=== PATIENT | female | born 1980 | race African-American/Black ===

== ENCOUNTER 2018-11-06 19:46 | Emergency (ER) | payer SELFPAY ==
[~2018-11-06] VITALS: Ht 167.6 cm; Wt 84.4 kg
--- NOTE | 2018-11-06 20:10 | NUR ---
ASSISTED PT TO RESTROOM TO PROVIDE URINE SAMPLE AND CHANGE INTO A GOWN, CLOSED DOOR UPON EXITING THE RESTROOM IN ROOM 9. PT CALLED OUT SHE NEEDED ASSISTANCE SORTLY AFTER THIS NURSE HEARD OVERHEARD FLUIDS SPILL TO THE FLOOR. UPON ENTERING THE RESTROOM THE PT WAS NOTED TO BE STANDING WITH FEET SPREAD APART, UMBILICAL CORD PRESENTING OUTSIDE OF THE BODY, NOTED PLACENTA AND FETUS TO BE CRADLED IN PT'S UNDERWEAR, NO MOVEMENT NOTED. ASSISTED PT BACK TO THE EXAM BED AND ALERTED DR. PIKE OF FINDINGS
[2018-11-06] MEDS ORDERED: OXYTOCIN/NORMAL SALINE 500 ML IV ONE (20:11)
[2018-11-06 20:32] LABS: BASOPHILS % (AUTO) 0 % (0-10); EOSINOPHILS # (AUTO) 0.1 10^3/uL (0.0-0.3); EOSINOPHILS % (AUTO) 1 % (0-10); HEMATOCRIT 32 % (35-52); LYMPHOCYTES # (AUTO) 2.3 X 10^3 (1.0-4.0); LYMPHOCYTES % (AUTO) 15 % (12-44); MEAN CORPUSCULAR HEMOGLOBIN 33 PG (25-34); MEAN CORPUSCULAR HGB CONC 35 G/DL (32-36); MEAN CORPUSCULAR VOLUME 94 FL (80-99); MEAN PLATELET VOLUME 9.7 FL (7.4-10.4); MONOCYTES # (AUTO) 0.9 X 10^3 (0.0-1.0); MONOCYTES % (AUTO) 6 % (0-12); NEUTROPHILS # (AUTO) 11.9 X 10^3 (1.8-7.8); NEUTROPHILS % (AUTO) 78 % (42-75); PLATELET COUNT 351 10^3/uL (130-400); WHITE BLOOD COUNT 15.2 10^3/uL (4.3-11.0)
--- NOTE | 2018-11-06 20:32 | ED GU-Female ---
General Stated Complaint: CRAMPING, BLEEDING, POSSIBLE MISCARRIAGE Source: patient, other Exam Limitations: no limitations History of Present Illness Date Seen by Provider: Nov 06, 2018 Time Seen by Provider: 19:56 Initial Comments The patient is a unknown dates she thinks her last period was about 3 months ago was in the ER with what she thinks the fetus in her underwear. She said she was not aware she was prior to having some cramping pain and bleeding. She denies any dysuria fevers chills cough. She does have a history of high blood pressure but she does not follow with any doctors and was told to take medicines but never took them because she just didn't feel she needed them. She says at times she'll check her blood pressure and it will be 240 on the systolic. She does not have any other known medical history. She denies a history of preeclampsia or hypertension with in the past. She's says the cramping pain is intermittent and she is not in any discomfort right now. No nausea vomiting or diarrhea. She denies any right upper quadrant abdominal pain, visual disturbances, history of seizures. In the past the patient followed with an OB provider in [place] or she cannot remember the name. Allergies and Home Medications Allergies Coded Allergies: No Known Drug Allergies (Unverified , 11/06/18) Patient Home Medication List Home Medication List Reviewed: Yes Review of Systems Review of Systems Constitutional: No chills, No diaphoresis EENTM: No ear discharge, No ear pain Respiratory: No cough, No short of breath Cardiovascular: No chest pain, No edema Gastrointestinal: abdominal pain; No constipation, No diarrhea, No nausea, No vomiting Genitourinary: denies discharge, denies dysuria; hematuria Past Ryhhwai-Dadzsx-Cymkgd Hx Patient Social History Alcohol Use: Denies Use Recreational Drug Use: Yes Drug of Choice: MJ, Meth Smoking Status: Current Everyday Smoker 2nd Hand Smoke Exposure: No Recent Foreign Travel: No Contact w/Someone Who Travel: No Physical Exam Vital Signs Vital Signs - First Documented 11/06/18 19:56 Temp 97.9 Pulse 106 Resp 20 B/P (MAP) 201/109 (139) Pulse Ox 99 O2 Delivery Room Air Capillary Refill : Height, Weight, BMI Height: '" Weight: lbs. oz. kg; BMI Method: General Appearance: WD/WN, no apparent distress HEENT: PERRL/EOMI, pharynx normal Neck: non-tender, full range of motion, supple, normal inspection Cardiovascular: normal peripheral pulses, regular rate, rhythm, no edema Respiratory: chest non-tender, lungs clear, normal breath sounds, no respiratory distress, no accessory muscle use Gastrointestinal: normal bowel sounds, non tender, soft, other (firm, cantaloupe sized uterus fundus is felt just below umbilicus one to 2 centimeters.) Genital/Rectal: other (blood at the vaginal introitus. Fetus and the umbilical cord are already out of the vagina. Placenta is sitting just inside the vagina.) Neurologic/Psychiatric: alert, normal mood/affect, oriented x 3 Skin: normal color, warm/dry Progress/Results/Core Measures Suspected Sepsis SIRS Temperature: Pulse: Respiratory Rate: Laboratory Tests 11/06/18 20:23: White Blood Count 15.2H Blood Pressure / Mean: Laboratory Tests 11/06/18 20:23: Creatinine 0.82, INR Comment 0.9, Platelet Count 351, Total Bilirubin 0.3 Results/Orders Lab Results Laboratory Tests Test 11/06/18 20:23 11/06/18 20:53 Range/Units White Blood Count 15.2 H 4.3-11.0 10^3/uL Red Blood Count 3.38 L 4.35-5.85 10^6/uL Hemoglobin 11.0 L 11.5-16.0 G/DL Hematocrit 32 L 35-52 % Mean Corpuscular Volume 94 80-99 FL Mean Corpuscular Hemoglobin 33 25-34 PG Mean Corpuscular Hemoglobin Concent 35 32-36 G/DL Red Cell Distribution Width 16.0 H 10.0-14.5 % Platelet Count 351 130-400 10^3/uL Mean Platelet Volume 9.7 7.4-10.4 FL Neutrophils (%) (Auto) 78 H 42-75 % Lymphocytes (%) (Auto) 15 12-44 % Monocytes (%) (Auto) 6 0-12 % Eosinophils (%) (Auto) 1 0-10 % Basophils (%) (Auto) 0 0-10 % Neutrophils # (Auto) 11.9 H 1.8-7.8 X 10^3 Lymphocytes # (Auto) 2.3 1.0-4.0 X 10^3 Monocytes # (Auto) 0.9 0.0-1.0 X 10^3 Eosinophils # (Auto) 0.1 0.0-0.3 10^3/uL Basophils # (Auto) 0.0 0.0-0.1 10^3/uL Neutrophils % (Manual) 78 % Lymphocytes % (Manual) 13 % Monocytes % (Manual) 7 % Eosinophils % (Manual) 1 % Basophils % (Manual) 1 % Band Neutrophils 0 % Blood Morphology Comment NORMAL Prothrombin Time 12.0 L 12.2-14.7 SEC INR Comment 0.9 0.8-1.4 Activated Partial Thromboplast Time 29 24-35 SEC Sodium Level 137 135-145 MMOL/L Potassium Level 3.5 L 3.6-5.0 MMOL/L Chloride Level 107 98-107 MMOL/L Carbon Dioxide Level 20 L 21-32 MMOL/L Anion Gap 10 5-14 MMOL/L Blood Urea Nitrogen 10 7-18 MG/DL Creatinine 0.82 0.60-1.30 MG/DL Estimat Glomerular Filtration Rate > 60 BUN/Creatinine Ratio 12 Glucose Level 98 70-105 MG/DL Calcium Level 9.2 8.5-10.1 MG/DL Corrected Calcium 9.9 8.5-10.1 MG/DL Magnesium Level 1.9 1.8-2.4 MG/DL Total Bilirubin 0.3 0.1-1.0 MG/DL Aspartate Amino Transf (AST/SGOT) 22 5-34 U/L Alanine Aminotransferase (ALT/SGPT) 13 0-55 U/L Alkaline Phosphatase 116 40-136 U/L Total Protein 6.0 L 6.4-8.2 GM/DL Albumin 3.1 L 3.2-4.5 GM/DL Urine Color YELLOW Urine Clarity CLEAR Urine pH 8 5-9 Urine Specific Rinard 1.015 L 1.016-1.022 Urine Protein 4+ NEGATIVE Urine Glucose (UA) NEGATIVE NEGATIVE Urine Ketones NEGATIVE NEGATIVE Urine Nitrite NEGATIVE NEGATIVE Urine Bilirubin NEGATIVE NEGATIVE Urine Urobilinogen NORMAL NORMAL MG/DL Urine Leukocyte Esterase 2+ H NEGATIVE Urine RBC (Auto) 3+ H NEGATIVE Urine RBC 5-10 H /HPF Urine WBC 25-50 H /HPF Urine Squamous Epithelial Cells 2-5 /HPF Urine Crystals NONE /LPF Urine Bacteria MODERATE H /HPF Urine Casts PRESENT /LPF Urine Hyaline Casts 0-2 H /LPF Urine Mucus LARGE H /LPF Urine Culture Indicated YES Urine Opiates Screen NEGATIVE NEGATIVE Urine Oxycodone Screen NEGATIVE NEGATIVE Urine Methadone Screen NEGATIVE NEGATIVE Urine Propoxyphene Screen NEGATIVE NEGATIVE Urine Barbiturates Screen NEGATIVE NEGATIVE Ur Tricyclic Antidepressants Screen NEGATIVE NEGATIVE Urine Phencyclidine Screen NEGATIVE NEGATIVE Urine Amphetamines Screen POSITIVE H NEGATIVE Urine Methamphetamines Screen POSITIVE H NEGATIVE Urine Benzodiazepines Screen NEGATIVE NEGATIVE Urine Cocaine Screen NEGATIVE NEGATIVE Urine Cannabinoids Screen POSITIVE H NEGATIVE My Orders Orders - ALEJANDRO PIKE Oxytocin/Normal Saline (Pitocin Pre-Mix) (11/06/18 20:11) Cbc With Automated Diff (11/06/18 20:21) Comprehensive Metabolic Panel (11/06/18 20:21) Drug Screen Stat (Urine) (11/06/18 20:21) Magnesium (11/06/18 20:21) Protime With Inr (11/06/18 20:21) Partial Thromboplastin Time (11/06/18 20:21) Saline Lock/Iv-Start (11/06/18 20:21) Type And Screen (11/06/18 20:21) Manual Differential (11/06/18 20:23) Straight Cath For Spec.-Adult (11/06/18 20:54) Ua Culture If Indicated (11/06/18 20:54) Labetalol Injection (Normodyne Injection (11/06/18 21:00) Acetaminophen Tablet (Tylenol Tablet) (11/06/18 21:15) Urine Culture (11/06/18 20:53) Ceftriaxone For Iv Use (Rocephin For I (11/06/18 21:30) Medications Given in ED Current Medications Medications Dose Ordered Sig/Chin Route Start Time Stop Time Status Last Admin Dose Admin Acetaminophen 1,000 mg ONCE ONCE PO 11/06/18 21:15 11/06/18 21:16 DC 11/06/18 21:51 1,000 MG Ceftriaxone Sodium 1000 mg/ Sterile Water 10 ml @ 200 mls/hr ONCE ONCE IV 11/06/18 21:30 11/06/18 21:32 DC 11/06/18 21:52 200 MLS/HR Labetalol HCl 20 mg ONCE ONCE IV 11/06/18 21:00 11/06/18 21:01 DC 11/06/18 21:10 20 MG Oxytocin/Sodium Chloride 500 ml @ ud STK-MED ONCE IV 11/06/18 20:11 11/06/18 20:12 DC 11/06/18 20:11 999 MLS/HR Vital Signs/I&O 11/06/18 19:56 Temp 97.9 Pulse 106 Resp 20 B/P (MAP) 201/109 (139) Pulse Ox 99 O2 Delivery Room Air Capillary Refill : Progress Note #1: Time: 20:48 Progress Note Placenta was delivered at 2004. Fetus was unknown delivery and the patient was not sure either. Using usual technique we applied a clamp across the cord. The fetus was cold to touch and no resuscitative efforts were indicated. We applied gentle downward traction have the patient push a couple times and was able to easily deliver the placenta. The placenta was inspected in all the code lesions and membrane edges seem to be intact. We put a speculum in the vagina and observed a little patent, open, patulous cervical os without evidence of membranes. We used a sponge on set of ringed forceps to inspect. There is a small amount of clotted blood in the in the vaginal vault. Plan to give her a gram of Ancef today straight catheter urine specimen, urine drug screen, CBC and CMP look for anemia or elevated liver enzymes. We'll get a type and screen in case she needs blood and check her Rh factor. We'll consult with on-call OB some follow-up. Her blood pressure was quite elevated when she got here and we're observing it and it has already gone down to 165/117 but if it does not go down below 160/ 110 organ help with some labetalol. We started Pitocin as soon as the placenta was delivered, 30 mg at flush. There is not much bleeding. Patient's not having any significant distress or pain. The proximal conception were inspected and a well-formed male possibly 5-7 months or maybe even a little older with obvious internal hemorrhage of the skull and abdomen consistent with miscarriage products of conception were noted. We will send the products of conception down to pathology. In accordance to state law of the proximal conception have to be disposed of as if it were a body and the patient has elected to use [place] out of [facility]. Nursing will have her sign the waiver's for pathology since she does not want to do an autopsy and we will arrange contact with the home. Progress Note #2: Time: 23:05 Progress Note The patient is a positive blood type so she does not need RhoGAM. Her bleeding is under control she is comfortable wants to go home and her blood pressures of 144/[address] since her dose of labetalol. We'll send her home to follow up outpatient with [facility] and provide her with some amlodipine. Consults Consults : Consulting Physician: DELANEY BECKER MD Consults Notes Discussed the case and she would like to see the blood pressure below 140/90 if not use labetalol considered observation stay. She is willing to follow up or have the previous [facility] follow-up in the next week. Departure Impression Primary Impression: Complete miscarriage Additional Impressions: UTI (urinary tract infection) Qualified Codes: N30.01 - Acute cystitis with hematuria hypertension Disposition: HOME, SELF-CARE Condition: Stable Departure-Patient Inst. Decision time for Depature: 23:10 Referrals: NO,LOCAL PHYSICIAN (PCP) Primary Care Physician Patient Instructions: Dealing With Miscarriage, High Blood Pressure (DC), Miscarriage (DC), Urinary Tract Infection, Adult (DC) Add. Discharge Instructions: Drink plenty of fluids. Use maternity pads and expect to have a little bleeding in line with level of period for the next couple days. Follow-up tomorrow by calling [facility] for an appointment. Use ibuprofen 800 mg or Tylenol 1000 mg as necessary for pain. Heating pad, also be helpful. Use the antibiotic, Bactrim twice a day with food for 5 days. Use the amlodipine one tablet daily for your blood pressure until you see the primary care team. Scripts Sulfamethoxazole/Trimethoprim (Bactrim Ds Tablet) 1 Each Tablet 1 EACH PO BID for 5 Days, #10 TAB 1 Refill Prov: ALEJANDRO PIKE 11/06/18 Amlodipine Besylate (Amlodipine Besylate) 10 Mg Tablet 10 MG PO DAILY for 30 Days, #30 TAB 0 Refills Prov: ALEJANDRO PIKE 11/06/18 Work/School Note: Work Release Form Date Seen in the Emergency Department: Nov 06, 2018 Return to Work: Nov 09, 2018 Restrictions: No Restrictions ALEJANDRO PIKE Nov 06, 2018 20:32
[2018-11-06 20:45] LABS: INR 0.9 (0.8-1.4)
[2018-11-06] MEDS ORDERED: LABETALOL HCL 20 MG/4 ML VIAL IV ONE (21:00)
[2018-11-06 21:02] LABS: ALANINE AMINOTRANSFERASE 13 U/L (0-55); ALBUMIN 3.1 GM/DL (3.2-4.5); ALKALINE PHOSPHATASE 116 U/L (40-136); BILIRUBIN,TOTAL 0.3 MG/DL (0.1-1.0); BUN/CREATININE RATIO 12; CALCIUM 9.2 MG/DL (8.5-10.1); CARBON DIOXIDE 20 MMOL/L (21-32); CHLORIDE 107 MMOL/L (98-107); CREATININE SERUM 0.82 MG/DL (0.60-1.30); GFR ESTIMATED > 60; GLUCOSE 98 MG/DL (70-105); MAGNESIUM 1.9 MG/DL (1.8-2.4); POTASSIUM 3.5 MMOL/L (3.6-5.0); SODIUM 137 MMOL/L (135-145)
[2018-11-06 21:03] LABS: BILIRUBIN,URINE NEGATIVE (NEGATIVE); CLARITY,URINE CLEAR; COLOR,URINE YELLOW; GLUCOSE, URINE (UA) NEGATIVE (NEGATIVE); KETONES,URINE NEGATIVE (NEGATIVE); LEUKOCYTE ESTERASE ,URINE 2+ (NEGATIVE); NITRITE,URINE NEGATIVE (NEGATIVE); PH,URINE 8 (5-9); PROTEIN,URINE 4+ (NEGATIVE); UROBILINOGEN,URINE NORMAL (NORMAL)
[2018-11-06 21:14] LABS: AMPHETAMINE SCREEN, URINE POSITIVE (NEGATIVE); BARBITURATE SCREEN URINE NEGATIVE (NEGATIVE); BENZODIAZEPINES SCREEN URINE NEGATIVE (NEGATIVE); CANNABINOID SCREEN, URINE POSITIVE (NEGATIVE); COCAINE SCREEN URINE NEGATIVE (NEGATIVE); METHADONE STAT NEGATIVE (NEGATIVE); METHAMPHETAMINE SCREEN URINE S POSITIVE (NEGATIVE); OPIATE SCREEN URINE NEGATIVE (NEGATIVE); OXYCODONE STAT NEGATIVE (NEGATIVE); PROPOXYPHENE STAT NEGATIVE (NEGATIVE); TRICYCLIC ANTIDEPRESSANTS SCRE NEGATIVE (NEGATIVE)
[2018-11-06] MEDS ORDERED: ACETAMINOPHEN 500 MG TAB (TYLENOL) PO ONE (21:15)
[2018-11-06 21:19] LABS: BACTERIA,URINE MODERATE /HPF; HYALINE CASTS, URINE 0-2 /LPF; WBC,URINE 25-50 /HPF
[2018-11-06] MEDS ORDERED: cefTRIAXone FOR IV USE 1,000 MG in WATER (STERILE) FOR INJECTION 10 ML IV ONE (21:30)
--- NOTE | 2018-11-06 21:30 | NUR ---
weight and length obtained on fetus. 1lb 4.6oz, 585gm, 13"long. foot prints obtained and placed in memento box. fetus and placenta labeled and taken to lab.
[2018-11-06 21:43] LABS: BAND NEUTROPHILS 0 %; BASOPHILS % (MANUAL) 1 %; EOSINOPHILS % (MANUAL) 1 %; LYMPHOCYTES % (MANUAL) 13 %; MONOCYTES % (MANUAL) 7 %; NEUTROPHILS % (MANUAL) 78 %; RBC MORPH NORMAL
--- NOTE | 2018-11-06 21:54 | NUR ---
[facility] called on stillborn. referral #[id number].
[2018-11-06] MEDS ORDERED: SULF1TAB35 PO (23:16)
[2018-11-06] MEDS ORDERED: AMLO10TA7 PO (23:16)
[2018-11-06 23:24] VITALS: BP 165/92
== END 2018-11-06 23:39 | disposition home or self-care (01) ==
LOC: ER 19:50
DX: O03.9 Complete or unspecified spontaneous abortion without complication (principal); N39.0 Urinary tract infection, site not specified; I10 Essential (primary) hypertension; F17.200 Nicotine dependence, unspecified, uncomplicated; Z87.59 Personal history of other complications of pregnancy, childbirth and the puerperium
CPT/HCPCS: 36415; 51701; 80053; 80306; 81000; 83735; 85007; 85027; 85610; 85730; 86850; 86900; 86901; 87088

== ENCOUNTER 2023-07-02 13:33 | Emergency (ER) | payer SELFPAY ==
[~2023-07-02] VITALS: Ht 165.1 cm; Wt 90.7 kg
[~2023-07-02 13:33] MED LIST: AMLO-251 PO; SULF1TAB38 PO
[2023-07-02] MEDS ORDERED: morphine INJ 10 MG/ML 1ML (SYR OR VIAL) IVP STA (13:49)
--- NOTE | 2023-07-02 13:53 | ED Integumentary General ---
General Stated Complaint: SPIDER BITE/HIGH BLOOD PRESSURE Source: patient Exam Limitations: no limitations History of Present Illness Date Seen by Provider: Jul 02, 2023 Time Seen by Provider: 13:41 Initial Comments 43-year-old female presents emergency department today for what she believes to be a spider bite on her left axillary region. Symptoms present for about 10 days now. She saw her primary doctor and subsequently Dr. Nazario in the clinic. Dr. Nazario thought that the wound would likely need debrided at some point due to eschar. She denies any fevers or chills. She has significant pain in her left axillary region. Has some clear drainage but no purulent drainage. She was seen in the walk-in clinic today and they called her primary doctor, Dr. Cummins, who recommended she be evaluated in the emergency department. She is on antibiotics All other systems reviewed and negative except documented per HPI. Voice recognition software was used to help create this chart Allergies and Home Medications Allergies Coded Allergies: No Known Drug Allergies (Unverified , 11/06/18) Patient Home Medication List Home Medication List Reviewed: Yes Amlodipine Besylate (Amlodipine Besylate) 10 Mg Tablet, 10 MG PO DAILY Prescribed by: ALEJANDRO PIKE on 11/06/18 2446 Hydrocodone/Acetaminophen (Hydrocodone-Acetamin 5-325 mg) 5 Mg-325 Mg Tablet, 1 TAB PO Q4H PRN for PAIN-MODERATE (5-7) Prescribed by: CLARA DIOP MD on 07/02/23 1443 Sulfamethoxazole/Trimethoprim (Bactrim Ds Tablet) 1 Each Tablet, 1 EACH PO BID Prescribed by: ALEJANDRO PIKE on 11/06/18 3376 Review of Systems Review of Systems Constitutional: see HPI Past Qslcohg-Nghqqy-Sjhyad Hx Patient Social History Tobacco Use?: No Use of E-Cig and/or Vaping dev: No Substance use?: No Alcohol Use?: No Seasonal Allergies Seasonal Allergies: No Past Medical History Surgeries: No Respiratory: No Cardiac: Yes Hypertension Neurological: No Sexually Transmitted Disease: No HIV/AIDS: No Genitourinary: Yes UTI-Chronic Gastrointestinal: No Musculoskeletal: No Endocrine: No HEENT: No Cancer: No Psychosocial: No Integumentary: No Blood Disorders: No Physical Exam Vital Signs Vital Signs - First Documented 07/02/23 07/02/23 13:43 14:51 Temp 36.8 Pulse 119 Resp 17 B/P (MAP) 180/115 (136) Pulse Ox 100 O2 Delivery Room Air Capillary Refill : General Appearance: WD/WN, no apparent distress HEENT: normal ENT inspection, pharynx normal Cardiovascular: no murmur, tachycardia Respiratory: chest non-tender, lungs clear, normal breath sounds, no respiratory distress, no accessory muscle use Skin: warm/dry, other (10x5cm ulceration with eschar in the base under L axilla. SHe also has a 3x3cm ulceration to the medial aspect of her left arm with similar eschar appearance. ) Progress/Results/Core Measures Results/Orders Lab Results Laboratory Tests Test 07/02/23 14:03 Range/Units White Blood Count 14.3 H 4.3-11.0 10^3/uL Red Blood Count 4.01 3.80-5.11 10^6/uL Hemoglobin 12.1 11.5-16.0 g/dL Hematocrit 38 35-52 % Mean Corpuscular Volume 95 80-99 fL Mean Corpuscular Hemoglobin 30 25-34 pg Mean Corpuscular Hemoglobin Concent 32 32-36 g/dL Red Cell Distribution Width 15.7 H 10.0-14.5 % Platelet Count 537 H 130-400 10^3/uL Mean Platelet Volume 9.1 9.0-12.2 fL Immature Granulocyte % (Auto) 2 % Neutrophils (%) (Auto) 81 H 42-75 % Lymphocytes (%) (Auto) 9 L 12-44 % Monocytes (%) (Auto) 5 0-12 % Eosinophils (%) (Auto) 2 0-10 % Basophils (%) (Auto) 1 0-10 % Neutrophils # (Auto) 11.6 H 1.8-7.8 10^3/uL Lymphocytes # (Auto) 1.3 1.0-4.0 10^3/uL Monocytes # (Auto) 0.8 0.0-1.0 10^3/uL Eosinophils # (Auto) 0.2 0.0-0.3 10^3/uL Basophils # (Auto) 0.2 H 0.0-0.1 10^3/uL Immature Granulocyte # (Auto) 0.3 H 0.0-0.1 10^3/uL Neutrophils % (Manual) 83 % Lymphocytes % (Manual) 5 % Monocytes % (Manual) 11 % Eosinophils % (Manual) 1 % Basophils % (Manual) 0 % Band Neutrophils 0 % Blood Morphology Comment NORMAL Sodium Level 138 135-145 MMOL/L Potassium Level 3.9 3.6-5.0 MMOL/L Chloride Level 104 98-107 MMOL/L Carbon Dioxide Level 21 21-32 MMOL/L Anion Gap 13 5-14 MMOL/L Blood Urea Nitrogen 15 7-18 MG/DL Creatinine 1.03 0.60-1.30 MG/DL Estimat Glomerular Filtration Rate 70 BUN/Creatinine Ratio 15 Glucose Level 147 H 70-105 MG/DL Calcium Level 9.3 8.5-10.1 MG/DL My Orders Orders - CLARA DIOP DO Morphine Injection (Morphine Injection (07/02/23 13:49) Basic Metabolic Panel (07/02/23 13:50) Cbc And Automated Diff (07/02/23 13:50) Ns Iv 1000 Ml (Ns Iv 1000 Ml) (07/02/23 14:00) Ed Iv/Invasive Line Start (07/02/23 14:02) Manual Differential (07/02/23 14:03) Vital Signs/I&O 07/02/23 07/02/23 13:43 14:51 Temp 36.8 36.7 Pulse 119 79 Resp 17 17 B/P (MAP) 180/115 (136) 137/88 Pulse Ox 100 O2 Delivery Room Air Room Air Departure Communication (Admissions) Patient is hemodynamically stable. Her white blood cell count is actually improving. She does have significant eschar at the area of previous bruising. There is no evidence for active or worsening infection at this time and she is nontoxic in appearance. Dr. Nazario on the phone and he request she follow-up in his clinic on Tuesday either at 9:00 or 1 in the afternoon. He plans to work her in during one of the sessions. She is comfortable agreeable to plan of care and discharged in stable condition of her questions were sought and answered Impression Primary Impression: Skin ulcer Qualified Codes: L98.499 - Non-pressure chronic ulcer of skin of other sites with unspecified severity Additional Impression: Eschar Disposition: HOME, SELF-CARE Condition: Stable Departure-Patient Inst. Referrals: [facility] [place] (PCP/Family) Primary Care Physician Add. Discharge Instructions: Take the pain medications as prescribed as needed. Follow-up with Dr. Nazario on Tuesday in the clinic. He said he will work you in if you show up at 9:00 or 1 in the afternoon which ever works better for your schedule. Continue pain medication as prescribed as needed. To the emergency department for any severe concerns Scripts Hydrocodone/Acetaminophen (Hydrocodone-Acetamin 5-325 mg) 5 Mg-325 Mg Tablet 1 TAB PO Q4H PRN for PAIN-MODERATE (5-7) for 3 Days, #12 TAB Prov: CLARA DIOP DO 07/02/23 CLARA DIOP DO Jul 02, 2023 13:53
[2023-07-02] MEDS ORDERED: NS IV 1000 ML 1,000 ML IV SCH (14:00)
[2023-07-02 14:10] LABS: BASOPHILS # (AUTO) 0.2 10^3/uL (0.0-0.1); BASOPHILS % (AUTO) 1 % (0-10); EOSINOPHILS # (AUTO) 0.2 10^3/uL (0.0-0.3); EOSINOPHILS % (AUTO) 2 % (0-10); HEMATOCRIT 38 % (35-52); HEMOGLOBIN 12.1 g/dL (11.5-16.0); LYMPHOCYTES # (AUTO) 1.3 10^3/uL (1.0-4.0); LYMPHOCYTES % (AUTO) 9 % (12-44); MEAN CORPUSCULAR HEMOGLOBIN 30 pg (25-34); MEAN CORPUSCULAR HGB CONC 32 g/dL (32-36); MEAN CORPUSCULAR VOLUME 95 fL (80-99); MEAN PLATELET VOLUME 9.1 fL (9.0-12.2); MONOCYTES # (AUTO) 0.8 10^3/uL (0.0-1.0); MONOCYTES % (AUTO) 5 % (0-12); NEUTROPHILS # (AUTO) 11.6 10^3/uL (1.8-7.8); NEUTROPHILS % (AUTO) 81 % (42-75); PLATELET COUNT 537 10^3/uL (130-400); WHITE BLOOD COUNT 14.3 10^3/uL (4.3-11.0)
[2023-07-02 14:18] LABS: POTASSIUM 3.9 MMOL/L (3.6-5.0)
[2023-07-02 14:19] LABS: CALCIUM 9.3 MG/DL (8.5-10.1)
[2023-07-02 14:23] LABS: CREATININE SERUM 1.03 MG/DL (0.60-1.30)
[2023-07-02 14:29] LABS: BAND NEUTROPHILS 0 %; BASOPHILS % (MANUAL) 0 %; EOSINOPHILS % (MANUAL) 1 %; LYMPHOCYTES % (MANUAL) 5 %; MONOCYTES % (MANUAL) 11 %; NEUTROPHILS % (MANUAL) 83 %
[2023-07-02 14:30] LABS: RBC MORPH NORMAL
[2023-07-02] MEDS ORDERED: ACHD5005 PO (14:42)
[2023-07-02 14:51] VITALS: BP 137/88
[2023-07-04] MEDS ORDERED: [UNRECOGNIZED DRUG - CODE] EP (14:31)
[2023-07-05] MEDS ORDERED: ACHD5005 PO (08:25)
[2023-07-05] MEDS ORDERED: SULF1TAB38 PO (08:28)
== END 2023-07-02 14:51 | disposition home or self-care (01) ==
LOC: EDUNIT# 13:33 → ER 13:36
DX: L98.499 Non-pressure chronic ulcer of skin of other sites with unspecified severity (principal)
CPT/HCPCS: 36415; 80048; 85007; 85027; 96361; 96374

== ENCOUNTER → 2023-07-04 | Outpatient (CLI) | payer SELFPAY ==
[~2023-07-04] VITALS: Ht 165.1 cm; Wt 97.9 kg
[~2023-07-04] MED LIST changes: +ACHD5005 PO; +[UNRECOGNIZED DRUG - CODE] EP
== END | disposition home or self-care (01) ==
LOC: PREOP 14:12
PROVIDERS: ATTEND Surgery
DX: Z01.818 Encounter for other preprocedural examination (principal)

== ENCOUNTER 2023-07-05 06:13 | Day surgery (SDC) | payer SELFPAY ==
[~2023-07-05] VITALS: Ht 165 cm; Wt 97.9 kg
[2023-07-05] VITALS (12 sets, daily range): BP systolic 157–194; BP diastolic 88–106
[2023-07-05 06:41] LABS: AMPHETAMINE SCREEN, URINE POSITIVE (NEGATIVE); CANNABINOID SCREEN, URINE POSITIVE (NEGATIVE); COCAINE SCREEN URINE NEGATIVE (NEGATIVE); OPIATE SCREEN URINE POSITIVE (NEGATIVE)
[2023-07-05 06:42] LABS: BARBITURATE SCREEN URINE NEGATIVE (NEGATIVE); METHADONE STAT NEGATIVE (NEGATIVE); OXYCODONE STAT NEGATIVE (NEGATIVE); TRICYCLIC ANTIDEPRESSANTS SCRE NEGATIVE (NEGATIVE)
[2023-07-05] MEDS ORDERED: ceFAZolin INJECTION 2,000 MG in NS (IVPB) 50 ML 50 ML IV ONE (06:45)
[2023-07-05] MEDS ORDERED: LIDOCAINE 2% w/EPI 1:100,000 20 ML VIAL ONE (07:03)
[2023-07-05] MEDS ORDERED: MIDAZOLAM INJ 2 MG/2 ML VIAL ONE (07:05)
[2023-07-05] MEDS ORDERED: fentaNYL INJECTION 100 MCG/2 ML VIAL ONE (07:05)
[2023-07-05] MEDS ORDERED: proPOfol INJECTION 200 MG/20 ML VIAL IV ONE (07:07)
[2023-07-05] MEDS ORDERED: LIDOCAINE PF 2% 5 ML VIAL ONE (07:07)
[2023-07-05] MEDS ORDERED: NS (IVPB) 50 ML 50 ML ONE (07:13)
[2023-07-05] MEDS ORDERED: ceFAZolin INJECTION 2,000 MG ONE (07:13)
[2023-07-05] MEDS ORDERED: LACTATED RINGERS 1,000 ML 1,000 ML IV PRN (07:15)
--- NOTE | 2023-07-05 07:39 | Progress Note-Pre Operative ---
Pre-Operative Progress Note Date H&P Reviewed: Jul 05, 2023 Time H&P Reviewed: 07:30 History & Physical: H&P Reviewed, Patient Examed, No changes noted Pre-Operative Diagnosis: left arm axilla wound MARISOL GAITAN DO Jul 05, 2023 07:39
[2023-07-05] MEDS ORDERED: SEVOFLURANE (ULTANE) 15 ML INHAL SOLN ONE (08:25)
[2023-07-05] MEDS ORDERED: ONDANSETRON INJECTION 4 MG/2 ML (SDV) ONE (08:25)
[2023-07-05] MEDS ORDERED: dexAMETHasone INJ 10 MG/ML 1 ML VIAL ONE (08:25)
[2023-07-05] MEDS ORDERED: ACHD5005 PO (08:25)
--- NOTE | 2023-07-05 08:27 | Discharge Inst-Simple/Standard ---
Discharge Inst-Standard Discharge Medications New, Converted or Re-Newed RX: Transmitted to Pharmacy Patient Instructions/Follow Up Plan of Care/Instructions/FU: [facility] tomorrow for dressing change. Bring someone with you who can help learn how to do it. You need daily and as needed dressing changes. Irrigatre with water and then pack with betadine or Vasche soaked kerlex followed by sterile bandages and tape. Activity as Tolerated: Yes Discharge Diet: Regular Diet Other Inst to Patient Follow up Appt: Make appointment for [facility] nurse tomorrow and Dr. Nazario 2 weeks. Instructions: No lifting greater than 10 pounds. No strenuous activity. May shower in 24 hours, no tub bath or soaking. Use incentive spirometer at home as directed. No Smoking Skin/Wound Care: [facility] clinic tomorrow for dressing change. Bring someone with you who can help learn how to do it. You need daily and as needed dressing changes. Irrigatre with water and then pack with betadine or Vasche soaked kerlex followed by sterile bandages and tape. Symptoms to Report: Appetite Changes, Extremity Discoloration, Numbness/Tingling, Swelling Increased, Bleeding Excessive, Eyesight Changes, Pain Increased, Urine Color Change, Constipation(Persistent), Fever over 101 degree F, Pain/Pressure in chest, Urinating Difficulty, Cough Up/Vomit Blood, Heart Beat Irreg/Pounding, Pain/Pressure in jaw, Vaginal Bleeding Increase, Cramps in feet or legs, Light headedness, Pain/Pressure in shoulder, Diarrhea(Persistent), Memory Changes Suddenly, Questions/Concerns, Weight gain consecutive days, Dizziness/Fainting, Nausea/Vomiting, Shortness of Breath, Weight gain over 2 pounds If questions or concerns contact your physician Or seek help at emergency department. MARISOL NAZARIO DO Jul 05, 2023 08:27
[2023-07-05] MEDS ORDERED: SULF1TAB38 PO (08:28)
--- NOTE | 2023-07-05 08:28 | Anesthesia-General Post-Op ---
General Patient Condition Mental Status/LOC: Same as Preop Cardiovascular: Satisfactory Nausea/Vomiting: Absent Respiratory: Satisfactory Pain: Controlled Complications: Absent Post Op Complications Complications None Follow Up Care/Instructions Patient Instructions None needed. Anesthesia/Patient Condition Patient Condition Patient is doing well, no complaints, stable vital signs, no apparent adverse anesthesia problems. No complications reported per nursing. MALIA GOTTI CRNA Jul 05, 2023 08:28
[2023-07-05] MEDS ORDERED: fentaNYL INJECTION 100 MCG/2 ML VIAL IVP ONE (08:30)
[2023-07-05] MEDS ORDERED: ONDANSETRON INJECTION 4 MG/2 ML (SDV) IVP PRN (08:30)
[2023-07-05] MEDS ORDERED: LABETALOL 5 mg/ml 20 ml SINGLE DOSE VIAL IV PRN (08:30)
[2023-07-05] MEDS ORDERED: HYDROcodone/ACETAMINOPHEN 5 MG/325 MG TABLET ONE (09:40)
[2023-07-05] MEDS ORDERED: HYDROcodone/ACETAMINOPHEN 5 MG/325 MG TABLET PO ONE (09:45)
--- NOTE | 2023-07-05 21:23 | OPERATIVE REPORT ---
DATE OF SERVICE: 07/05/2023 PREOPERATIVE DIAGNOSIS: Left arm and axilla wound. POSTOPERATIVE DIAGNOSIS: Left arm and axilla wound. PROCEDURE: Sharp and cautery debridement, left arm 5 x 3.5 cm and left axilla 10.2 x 4 x 3.5 cm. SURGEON: Marisol Nazario DO ANESTHESIA: General. ESTIMATED BLOOD LOSS: Minimal. COMPLICATIONS: None. INDICATIONS: The patient is a 43-year-old female with questionable spider bite versus chemical burn. She has a large eschar on both areas and is questionable if there was abscess or necrotic tissue underneath the eschar. The patient was discussed risks and benefits of procedure and wished to proceed. Consent was signed in chart. DESCRIPTION OF PROCEDURE: The patient was taken to the operating suite. She was prepped and draped in sterile fashion. Timeout was performed. The eschar and necrotic tissue was sharply and also cautery was used to debride the areas. The left arm was 5 x 3.5 cm down to healthy subcutaneous fat. Hemostasis was achieved with cautery. The left axilla, the inferior portion, the eschar had some necrotic tissue underneath was sharply and cautery was used to debride the area. The overall dimensions on the left arm are 5 x 3.5. The left axilla was 10.3 x 4 x 3.5 cm. The wounds were then irrigated and packed with Betadine-soaked Kerlix and sterile bandages were applied. The patient tolerated the procedure well without complications, taken to recovery room in stable condition. PLAN: The patient will go to the office tomorrow for further dressing changes and if unable to perform, we will plan on arranging for further wound care. Job ID: [id number] DocumentID: [id number] Dictated Date: 07/05/2023 15:33:20 Agricultural Research Director Date: 07/05/2023 21:22:00 Dictated By: MARISOL NAZARIO DO
== END 2023-07-05 10:24 | disposition home or self-care (01) ==
LOC: SDC 06:13
PROVIDERS: ATTEND Surgery
DX: S41.102A Unspecified open wound of left upper arm, initial encounter (principal); L08.89 Other specified local infections of the skin and subcutaneous tissue; R21 Rash and other nonspecific skin eruption; F17.290 Nicotine dependence, other tobacco product, uncomplicated
CPT/HCPCS: 80306; 84703; 87070; 87075; 87076; 87081; 87185; 87205; 88304

== ENCOUNTER 2023-07-07 01:05 | Emergency (ER) | payer SELFPAY ==
[~2023-07-07] VITALS: Ht 165 cm; Wt 97.9 kg
--- NOTE | 2023-07-07 01:48 | ED General ---
General Chief Complaint: Skin/Wound Problems Stated Complaint: DRESSING CHANGE Nursing Triage Note: patient states surgery on Jul [address] gaitan. states was suppose to get dsgs changed yesterday, missed appt. patient denies any issues, states just needs her dsgs changed. Source of Information: Patient, Old Records Exam Limitations: No Limitations History of Present Illness Date Seen by Provider: Jul 07, 2023 Time Seen by Provider: 01:25 Initial Comments This 43 year old woman presents to the ER after having a tissue debridement on the left axilla and upper arm [address] Gaitan. She had necrotic tissue from a presumed spider bite vs chemical burn. She was to see Dr. Gaitan in [facility] yesterday for wound care but did not make the appointment. She presents this morning for wound care. Iodine soaked gauze was used to pack the two wounds. Allergies and Home Medications Allergies Coded Allergies: No Known Drug Allergies (Unverified , 11/06/18) Patient Home Medication List Home Medication List Reviewed: Yes Amlodipine Besylate (Amlodipine Besylate) 10 Mg Tablet, 10 MG PO DAILY Prescribed by: ALEJANDRO PIKE on 11/06/182315 Clonidine HCl/Pf (Clonidine 1,000 Mcg/10 ml Vial) 1,000 Mcg/10 Ml (100 Mcg/Ml) Vial, 1,000 MCG EP, (Reported) Entered as Reported by: Norah Munoz on 07/04/23 1431 Hydrocodone/Acetaminophen (Hydrocodone-Acetamin 5-325 mg) 5 Mg-325 Mg Tablet, 1 EACH PO Q4H PRN for PAIN-MODERATE (5-7) Prescribed by: MARISOL GAITAN on 07/05/23 0825 Sulfamethoxazole/Trimethoprim (Bactrim Ds Tablet) 1 Each Tablet, 1 EACH PO BID Prescribed by: MARISOL GAITAN on 07/05/23 0828 Discontinued Medications Hydrocodone/Acetaminophen (Hydrocodone-Acetamin 5-325 mg) 5 Mg-325 Mg Tablet, 1 TAB PO Q4H PRN for PAIN-MODERATE (5-7) Discontinued Reason: No Longer Taking Prescribed by: CLARA DIOP MD on 07/02/23 1443 Sulfamethoxazole/Trimethoprim (Bactrim Ds Tablet) 1 Each Tablet, 1 EACH PO BID Discontinued Reason: No Longer Taking Prescribed by: ALEJANDRO PIKE on 11/06/182315 Review of Systems Review of Systems Constitutional: no symptoms reported EENTM: no symptoms reported Respiratory: no symptoms reported Cardiovascular: no symptoms reported Gastrointestinal: no symptoms reported Genitourinary: no symptoms reported Musculoskeletal: no symptoms reported Skin: see HPI Psychiatric/Neurological: No Symptoms Reported Hematologic/Lymphatic: No Symptoms Reported Immunological/Allergic: no symptoms reported Past Oaytuvy-Tlmemc-Noiusu Hx Patient Social History Tobacco Use?: Yes Tobacco type used: Cigarettes Seasonal Allergies Seasonal Allergies: Yes Past Medical History Surgeries: Yes (right leg, debridement of left arm and axilla wounds) Respiratory: No Currently Using CPAP: No Currently Using BIPAP: No Cardiac: Yes Hypertension Neurological: No Sexually Transmitted Disease: No HIV/AIDS: No Genitourinary: No UTI-Chronic Gastrointestinal: No Musculoskeletal: No Endocrine: No HEENT: No Cancer: No Psychosocial: No Integumentary: No Blood Disorders: No Physical Exam Vital Signs Vital Signs - First Documented 07/07/23 01:20 Pulse 107 Resp 20 B/P (MAP) 186/99 (128) Pulse Ox 98 O2 Delivery Room Air Capillary Refill : Less Than 3 Seconds Height, Weight, BMI Height: 5'6.00" Weight: 186lbs. oz. 84.430094dr; 35.00 BMI Method:Estimated General Appearance: No Apparent Distress, WD/WN Skin: Other (two large skin and subcutaneous tissue excisions on the left upper arm and axill. Tissue edges have begun drying. Wounds were packed with iodine soaked gauze. ) Progress/Results/Core Measures Suspected Sepsis SIRS Temperature: Pulse: 107 Respiratory Rate: 20 Blood Pressure 186 /99 Mean: 128 Results/Orders Vital Signs/I&O 07/07/23 07/07/23 01:20 01:50 Pulse 107 Resp 20 B/P (MAP) 186/99 (128) 154/98 Pulse Ox 98 O2 Delivery Room Air Capillary Refill : Less Than 3 Seconds Blood Pressure Mean: 128 Progress Note : Progress Note Wounds were packed with gauze soaked in sterile water and iodine and redressed with ABD pads and tape. Departure Impression Primary Impression: Open wound of left axillary region Qualified Codes: S41.102D - Unspecified open wound of left upper arm, subsequent encounter Additional Impression: Visit for wound care Disposition: HOME, SELF-CARE Condition: Improved Departure-Patient Inst. Decision time for Depature: 01:47 Referrals: [facility] (PCP/Family) Primary Care Physician Patient Instructions: Wound Care ED Add. Discharge Instructions: Keep the wounds clean and dry. Keep the dressing on until you receive further instruction from Dr. Gaitan. Contact Dr. Gaitan's office first thing in the morning for further instructions on how to manage wound care. Return to the ER if you have worsening symptoms despite following these instructions. All discharge instructions reviewed with patient and/or family. Voiced understanding. Copy Copies To 1: MARISOL GAITAN JOSHUA T MD Jul 07, 2023 01:48
[2023-07-07 01:50] VITALS: BP 154/98
== END 2023-07-07 01:51 | disposition home or self-care (01) ==
LOC: EDUNIT# 01:05 → ER 01:10
DX: S41.102D Unspecified open wound of left upper arm, subsequent encounter (principal); F17.210 Nicotine dependence, cigarettes, uncomplicated; X58.XXXA Exposure to other specified factors, initial encounter

== ENCOUNTER 2023-07-17 08:44 | Outpatient (RCR) | payer SELFPAY ==
[2023-07-09 10:40] VITALS: BP 164/104
[2023-07-10 11:27] VITALS: BP 175/103
[2023-07-16 10:22] VITALS: BP 165/99
[~2023-07-17] VITALS: Ht 165.1 cm; Wt 90.1 kg
[2023-07-17 10:28] VITALS: BP 157/87
== END 2023-08-04 | disposition home or self-care (01) ==
LOC: SDC 08:44
PROVIDERS: ATTEND Surgery
DX: Z48.01 Encounter for change or removal of surgical wound dressing (principal)
CPT/HCPCS: 99212

== ENCOUNTER 2023-07-25 10:59 | Day surgery (SDC) | payer SELFPAY ==
[2023-07-25] VITALS (12 sets, daily range): BP systolic 117–190; BP diastolic 64–110
[~2023-07-25] VITALS: Wt 90.1 kg
[2023-07-25 11:40] LABS: AMPHETAMINE SCREEN, URINE POSITIVE (NEGATIVE); BARBITURATE SCREEN URINE NEGATIVE (NEGATIVE); CANNABINOID SCREEN, URINE POSITIVE (NEGATIVE); COCAINE SCREEN URINE NEGATIVE (NEGATIVE); METHADONE STAT NEGATIVE (NEGATIVE); OPIATE SCREEN URINE NEGATIVE (NEGATIVE); OXYCODONE STAT NEGATIVE (NEGATIVE); TRICYCLIC ANTIDEPRESSANTS SCRE NEGATIVE (NEGATIVE)
--- NOTE | 2023-07-25 11:53 | Progress Note-Pre Operative ---
Pre-Operative Progress Note Date H&P Reviewed: Jul 25, 2023 Time H&P Reviewed: 11:53 History & Physical: H&P Reviewed, Patient Examed, No changes noted Pre-Operative Diagnosis: WOUND LEFT AXILLA MARISOL GAITAN DO Jul 25, 2023 11:53
[2023-07-25] MEDS ORDERED: ceFAZolin INJECTION 2,000 MG in NS (IVPB) 50 ML 50 ML IV ONE (12:00)
[2023-07-25] MEDS ORDERED: LACTATED RINGERS 1,000 ML 1,000 ML IV PRN (12:00)
[2023-07-25] MEDS ORDERED: LIDOCAINE 2% w/EPI 1:100,000 20 ML VIAL ONE (12:04)
[2023-07-25] MEDS ORDERED: LIDOCAINE PF 2% 5 ML VIAL ONE (12:18)
[2023-07-25] MEDS ORDERED: MIDAZOLAM INJ 2 MG/2 ML VIAL ONE (12:18)
[2023-07-25] MEDS ORDERED: fentaNYL INJECTION 100 MCG/2 ML VIAL ONE (12:18)
[2023-07-25] MEDS ORDERED: proPOfol INJECTION 200 MG/20 ML VIAL IV ONE (12:18)
[2023-07-25] MEDS ORDERED: ONDANSETRON INJECTION 4 MG/2 ML (SDV) ONE (12:18)
[2023-07-25] MEDS ORDERED: SEVOFLURANE (ULTANE) 15 ML INHAL SOLN ONE ×2 (12:18→13:17)
[2023-07-25] MEDS ORDERED: PHENYLEPHRINE 100 MCG/ML 10 ML (ANESTHESIA) SYR ONE (12:42)
--- NOTE | 2023-07-25 13:02 | Progress Note-Post Operative ---
Post-Operative Progess Note Surgeon (s)/Senior Talent Management Consultant (s) Surgeon MARISOL GAITAN DO Senior Talent Management Consultant: na Pre-Operative Diagnosis WOUND LEFT AXILLA Post-Operative Diagnosis same Procedure & Operative Findings Date of Procedure 07/25/23 Procedure Performed/Findings cautery debridement of subucutaneous tissue left axilla Anesthesia Type general Estimated Blood Loss Estimated blood loss (mL): minimal Specimens/Packing Specimens Removed culture, subcutaneous tissue left axilla Packing: kerlex c 1/4% MARISOL Guerrero DO Jul 25, 2023 13:01
--- NOTE | 2023-07-25 13:04 | Discharge Inst-Simple/Standard ---
Discharge Inst-Standard Patient Instructions/Follow Up Plan of Care/Instructions/FU: [facility] office tomorrow for dressing change. Need to have it done daily. Bring your Dakins solution with you. Activity as Tolerated: Yes Discharge Diet: Regular Diet Other Inst to Patient Follow up Appt: [facility] office tomorrow for dressing change. Need to have it done daily. Bring your Dakins solution with you. Instructions: No lifting greater than 10 pounds. No strenuous activity. May shower in 24 hours, no tub bath or soaking. Use incentive spirometer at home as directed. No Smoking Skin/Wound Care: Dressing change need to have it done daily. Bring your Dakins solution with you. Irrigate and pack with Dakins/Kerlex. Symptoms to Report: Appetite Changes, Extremity Discoloration, Numbness/Tingling, Swelling Increased, Bleeding Excessive, Eyesight Changes, Pain Increased, Urine Color Change, Constipation(Persistent), Fever over 101 degree F, Pain/Pressure in [address], Urinating Difficulty, Cough Up/Vomit Blood, Heart Beat Irreg/Pounding, Pain/Pressure in jaw, Vaginal Bleeding Increase, Cramps in feet or legs, Lightheadedness, Pain/Pressure in shoulder, Diarrhea(Persistent), Memory Changes Suddenly, Questions/Concerns, Weight gain consecutive days, Dizziness/Fainting, Nausea/Vomiting, Shortness of Breath, Weight gain over 2 pounds If questions or concerns contact your physician Or seek help at emergency department. MARISOL GAITAN DO Jul 25, 2023 13:04
--- NOTE | 2023-07-25 13:11 | Anesthesia-General Post-Op ---
General Patient Condition Mental Status/LOC: Same as Preop Cardiovascular: Satisfactory Nausea/Vomiting: Absent Respiratory: Satisfactory Pain: Controlled Complications: Absent Post Op Complications Complications None Follow Up Care/Instructions Patient Instructions None needed. Anesthesia/Patient Condition Patient Condition Patient is doing well, no complaints, stable vital signs, no apparent adverse anesthesia problems. No complications reported per nursing. CHARLIE ALONZO ROTARY SLICING MACHINE OPERATOR Jul 25, 2023 13:11
[2023-07-25] MEDS ORDERED: MEPERIDINE INJ 50 MG/ML VIAL IVP ONE (13:15)
[2023-07-25] MEDS ORDERED: fentaNYL INJECTION 100 MCG/2 ML VIAL IVP ONE (13:15)
[2023-07-25] MEDS ORDERED: ONDANSETRON INJECTION 4 MG/2 ML (SDV) IVP PRN (13:15)
[2023-07-25] MEDS ORDERED: morphine INJ 10 MG/ML 1ML (SYR OR VIAL) IVP ONE (13:15)
[2023-07-25] MEDS ORDERED: HYDROcodone/ACETAMINOPHEN 5 MG/325 MG TABLET PO ONE (14:45)
[2023-07-25] MEDS ORDERED: HYDROcodone/ACETAMINOPHEN 5 MG/325 MG TABLET ONE (14:52)
--- NOTE | 2023-07-26 01:17 | OPERATIVE REPORT ---
DATE OF SERVICE: 07/25/2023 PREOPERATIVE DIAGNOSIS: Left axillary wound. POSTOPERATIVE DIAGNOSIS: Left axillary wound. PROCEDURES: Cautery debridement 5 x 3 x 1 cm left axillary wound, subcutaneous tissue. SURGEON: Marisol Nazario DO ANESTHESIA: General. ESTIMATED BLOOD LOSS: Minimal. COMPLICATIONS: None. INDICATIONS: The patient is a 43-year-old female with a wound to the left axillary area. She has had previous debridement, but still an area of sloughing and she was discussed risks and benefits of proceeding with further debridement as procedure as noted above. She understands and wishes to proceed. Consent was signed in chart. DESCRIPTION OF PROCEDURE: The patient was taken to the operating suite. She was prepped and draped in sterile fashion. Timeout was performed. Using cautery, subcutaneous tissue was grasped, elevated and the subcutaneous tissue was debrided out with the overall area measuring 5 x 3 x 1 cm. Hemostasis was achieved. Culture was obtained as well. The wound was then irrigated with copious amounts of irrigation and packed with 0.25% Dakin's Kerlix wet-to-dry. The patient tolerated the procedure well without complications, taken to recovery room in stable condition. Job ID: [id number] DocumentID: [id number] Dictated Date: 07/25/2023 16:30:47 Technical Sales Manager Date: 07/26/2023 01:15:00 Dictated By: MARISOL NAZARIO DO
[2023-07-26] MEDS ORDERED: SODIUM HYPOCHLORITE 0.25% TOP SCH (09:00)
== END 2023-07-25 15:15 | disposition home or self-care (01) ==
LOC: SDC 10:59
PROVIDERS: ATTEND Surgery
DX: S41.102A Unspecified open wound of left upper arm, initial encounter (principal); R21 Rash and other nonspecific skin eruption; F17.210 Nicotine dependence, cigarettes, uncomplicated
CPT/HCPCS: 80306; 87070; 87075; 87076; 87077; 87081; 87185; 87186; 87205